=== PATIENT | female | born 1975 | race Caucasian/White ===

== ENCOUNTER 2021-07-04 10:01 | Outpatient (CLI) | payer OTHER, BC, SELFPAY ==
--- NOTE | 2021-07-04 10:13 | XR_ITS ---
WS: [id number] Chest 2 views, 07/04/2021 Clinical Data: WHEEZING/CHEST PAIN/FATIGUE Comparison: PA chest, 04/09/2016. Findings: No nodules, masses or effusions are seen. The heart is slightly enlarged. The pulmonary vas cularity is not increased. No pneumonia or pneumothorax is seen. Intimal basilar atelectasis over the right diaphragm is seen. XR/XR chest 2V* [id number] Impression: Mild cardiomegaly and right basilar atelectasis.
== END 2021-07-04 10:02 | disposition home or self-care (01) ==
PROVIDERS: PCP Nurse Practitioner Family; Visit Provider Nurse Practitioner Family
DX: R07.89 Other chest pain (principal); R06.2 Wheezing; R53.83 Other fatigue; I51.7 Cardiomegaly; J98.11 Atelectasis
CPT/HCPCS: 71046

== ENCOUNTER 2021-11-01 20:00 | Outpatient (CLI) | payer OTHER, SELFPAY | END 2021-11-01 20:01 | disposition home or self-care (01) | LOC: SLEEP 11-02 07:29 | PROVIDERS: PCP Nurse Practitioner Family; Visit Provider Internal Medicine Pulmonary Disease | DX: G47.30 Sleep apnea, unspecified (principal) | CPT/HCPCS: 95811 ==

== ENCOUNTER → 2021-11-08 15:35 | Outpatient (BNVA) | payer OTHER, SELFPAY | PROVIDERS: PCP Nurse Practitioner Family; Visit Provider Nurse Practitioner Family | DX: Z20.822 Contact with and (suspected) exposure to COVID-19 (principal); I10 Essential (primary) hypertension; G47.33 Obstructive sleep apnea (adult) (pediatric); E66.9 Obesity, unspecified; E11.9 Type 2 diabetes mellitus without complications; J45.909 Unspecified asthma, uncomplicated; Z71.89 Other specified counseling; J06.9 Acute upper respiratory infection, unspecified | CPT/HCPCS: 87635 ==

== ENCOUNTER 2021-11-13 10:21 | Outpatient (CLI) | payer OTHER, BC, SELFPAY ==
[2021-11-13 10:34] VITALS: BP 129/78; PULSE 83; RESP 20; TEMP 36.7; O2SAT 95; BMI 43.2
[2021-11-13 12:28] VITALS: BP 122/76; PULSE 78; RESP 18; TEMP 36.7; O2SAT 97
== END 2021-11-13 10:22 | disposition home or self-care (01) ==
LOC: OPS 10:28
PROVIDERS: PCP Nurse Practitioner Family; Visit Provider Nurse Practitioner Family
DX: U07.1 COVID-19 (principal)
CPT/HCPCS: 96365

== ENCOUNTER → 2023-10-06 18:24 | Outpatient (BNVA) | payer OTHER, BC, SELFPAY | PROVIDERS: PCP Nurse Practitioner Family; Visit Provider Nurse Practitioner | DX: J02.9 Acute pharyngitis, unspecified (principal) | CPT/HCPCS: 87880 ==

== ENCOUNTER 2024-01-08 14:01 | Outpatient (CLI) | payer OTHER, BC, SELFPAY ==
--- NOTE | 2024-01-08 14:08 | CT_ITS ---
WS: [id number] CT ABDOMEN AND PELVIS NONCONTRAST HISTORY: ABDOMINAL PAIN/FALL/ABNORMALITIES OF GAIT MOBILITY TECHNIQUE: Imaging performed through the abdomen and pelvis. Coronal and sagittal reformats are submi tted. All CT scans at [facility] use at least one of these dose optimization techniques: auto mated exposure control; mA and/or kV adjustment per patient size (includes targeted exams where dose is matched to clinical indication); or iterative reconstruction. DLP: 758.31 mGy.cm COMPARISON: None available. Lower thorax: Lung bases are clear. Visualized heart is normal. No hiatal hernia. Liver: Normal size liver. No mass or bile duct dilatation. Gallbladder: Prior cholecystectomy. Pancreas: Normal size and attenuation. Normal pancreatic duct. No pancreatitis or mass. Spleen: Normal. Adrenal glands: Normal. No mass. Right kidney: Nonobstructing 3 mm calcification lower pole. Left kidney: Normal size kidney with no mass or hydronephrosis. Aorta: Normal abdominal aorta, no aneurysm or atherosclerosis. No free fluid, intraperitoneal air or significant lymphadenopathy. GI tract: Gastric bypass changes noted at the GE junction and proximal small bowel. No obstruction. N o free air and no fluid. No small bowel obstruction. Normal appendix. There are a few scattered diver ticula without acute diverticulitis. Abdominal wall: Negative. No hernia. Pelvis: No free fluid or adenopathy. Uterus and ovaries are negative. Osseous structures: Large osteophyte along the medial LEFT femoral neck. IMPRESSION: 1. Status post gastric bypass. Postsurgical changes are unremarkable. No complications are evident. 2. No GI tract obstruction. 3. Prior cholecystectomy.
== END 2024-01-08 14:02 | disposition home or self-care (01) ==
LOC: RAD 14:02
PROVIDERS: PCP Nurse Practitioner Family; Visit Provider Nurse Practitioner Family
DX: R10.9 Unspecified abdominal pain (principal); R26.89 Other abnormalities of gait and mobility; Z98.84 Bariatric surgery status; Z90.49 Acquired absence of other specified parts of digestive tract
CPT/HCPCS: 74176

== ENCOUNTER 2024-03-18 14:59 | Outpatient (CLI) | payer OTHER, BC, SELFPAY ==
--- NOTE | 2024-03-18 15:05 | XR_ITS ---
WS: [id number] Left hip, AP and frog-leg views, 03/18/2024 Clinical Data: PAIN IN LEFT HIP Comparison: None. Findings: No fractures or dislocations are seen. The left hip shows osteoarthritic change with enlargement of t he medial femoral head. There is cyst formation in the adjacent acetabulum. There is sclerosis of the overlying acetabulum. There is an acetabular lip. There is no fragmentation of the left femoral head . Soft tissues are not remarkable. The adjacent pelvis is normal. XR/XR hip LT 2-3V wo/w pel* [id number] Impression: Moderate osteoarthritis of the left hip. Tonnis classification: grade 2: small cysts in femoral head/acetabulum or moder ate joint space narrowing or moderate loss of head sphericity
== END 2024-03-18 15:00 | disposition home or self-care (01) ==
LOC: RAD 15:02
PROVIDERS: PCP Nurse Practitioner Family; Visit Provider Nurse Practitioner Family
DX: M16.12 Unilateral primary osteoarthritis, left hip (principal); M25.552 Pain in left hip
CPT/HCPCS: 73502

== ENCOUNTER → 2025-05-02 11:19 | Outpatient (BNVA) | payer OTHER, BC, SELFPAY | PROVIDERS: PCP Nurse Practitioner Family; Visit Provider Nurse Practitioner Women's Health | DX: Z01.419 Encounter for gynecological examination (general) (routine) without abnormal findings (principal); N39.0 Urinary tract infection, site not specified | CPT/HCPCS: 81000; 87086; 87624 ==